=== PATIENT | male | born 1955 | race Caucasian/White ===

== ENCOUNTER 2020-09-05 07:04 | Inpatient (IN) | payer OTHER ==
[~2020-09-05] VITALS: Ht 182.9 cm; Wt 64.9 kg
[2020-09-05 07:16] VITALS: BP 176/92
[2020-09-05] MEDS ORDERED: ASA81BEC PO (07:22)
[2020-09-05] MEDS ORDERED: NEXIUM40 MG PO (07:22)
[2020-09-05 07:46] LABS: HEMATOCRIT 43.7 % (42.0-52.0); HEMOGLOBIN 15.1 gm/dL (14.0-18.0); MCH 35.9 pg (26.0-34.0); MCHC 34.6 g/dL (28.0-37.0); MCV 103.7 fL (80.0-100.0); MPV 7.8 fl. (7.2-11.1); NUCLEATED RBCS 0 /100WBC; PLATELET COUNT* 275 thou/uL (150-400); RBC 4.21 mil/uL (4.50-6.00); RDW-CV 14.2 % (10.5-14.5); WBC 13.8 thou/uL (4.0-11.0)
[2020-09-05 07:54] LABS: CALCIUM 8.9 mg/dL (8.5-10.1); CREATININE 0.7 mg/dL (0.6-1.3)
[2020-09-05 07:59] LABS: ALBUMIN 3.4 g/dL (3.4-5.0); TOTAL BILIRUBIN 1.4 mg/dL (<0.1-1.0); TOTAL PROTEIN 7.4 g/dL (6.4-8.2)
[2020-09-05 08:40] LABS: ABSOLUTE LYMPHOCYTES 0.6 thou/uL (0.8-5.3); ABSOLUTE MONOCYTES 0.6 thou/uL (0.0-1.2); ABSOLUTE NEUTROPHILS 12.7 thou/uL (1.6-8.1); METAMYELOCYTES 1 %
[2020-09-05 08:41] LABS: PLATELET ESTIMATE ADEQUATE; TOXIC GRANULATION Occasional
[2020-09-05 11:25] VITALS: BP 172/96
[2020-09-05 11:30] VITALS: BP 177/97
--- NOTE | 2020-09-05 15:34 | EKG ---
[place] [address] ELECTROCARDIOGRAM REPORT Name: CAT REAVES Room: [address] ADM IN ..#: [id number] Admission: 09/05/20 Attend Phys: Yumiko Pagan MD Discharge: Date of : 53 Date of Service: 09/05/20 0732 Report #: [id number] THIS REPORT FOR: //name// [facility] ED Test Date: 2020-09-05 Test Time: 07:32:37 Pat Name: CAT REAVES Department: Room: [facility] Gender: M Ski Lift Operator: CD : 1955 Requested By: Juan Daniel Art Order Number: [id number] MD: Rafa Bryan Measurements Intervals [place] Rate: 65 P: -76 [place]: 106 QRS: 55 QRSD: 96 T: 61 QT: 468 QTc: 487 Interpretive Statements Ectopic atrial rhythm Short [place] interval RSR' in V1 or V2, right VCD Borderline prolonged QT interval No previous ECG available for comparison Electronically Signed On 09-05-2020 15:33:46 [employer]ES [employer] by Rafa Bryan [email or web address] <ELECTRONICALLY SIGNED> By: Rafa Bryan MD, [facility] 09/05/20 1533 0732 0732 Rafa Bryan MD, [facility] /EPI
[2020-09-05 20:30] VITALS: BP 121/85
[2020-09-06 00:51] VITALS: BP 144/84
[2020-09-06 04:00] VITALS: BP 137/82
[2020-09-06 04:29] LABS: ABSOLUTE LYMPHOCYTES 0.6 thou/uL (0.8-5.3); ABSOLUTE MONOCYTES 0.8 thou/uL (0.0-1.2); BASOPHILS 0.3 %; EOSINOPHILS 0.1 %; HEMATOCRIT 40.9 % (42.0-52.0); LYMPHOCYTES 4.6 %; MCH 36.1 pg (26.0-34.0); MCHC 34.2 g/dL (28.0-37.0); MCV 105.4 fL (80.0-100.0); MONOCYTES 6.1 %; MPV 8.3 fl. (7.2-11.1); NUCLEATED RBCS 0 /100WBC; PLATELET COUNT* 220 thou/uL (150-400); POLYS 88.9 %; RBC 3.88 mil/uL (4.50-6.00); RDW-CV 14.4 % (10.5-14.5); WBC 13.4 thou/uL (4.0-11.0)
[2020-09-06 05:01] LABS: ALBUMIN 2.4 g/dL (3.4-5.0); CALCIUM 8.3 mg/dL (8.5-10.1); CREATININE 0.6 mg/dL (0.6-1.3); POTASSIUM 3.7 mmol/L (3.5-5.1); TOTAL BILIRUBIN 1.2 mg/dL (<0.1-1.0); TOTAL PROTEIN 5.7 g/dL (6.4-8.2)
[2020-09-06 08:00] VITALS: BP 147/89
[2020-09-06 16:00] VITALS: BP 161/90
[2020-09-06 19:50] VITALS: BP 144/86
[2020-09-07] VITALS (7 sets, daily range): BP systolic 137–181; BP diastolic 82–99
[2020-09-07 04:40] LABS: HEMATOCRIT 34.6 % (42.0-52.0); MCH 36.5 pg (26.0-34.0); MCHC 34.7 g/dL (28.0-37.0); MCV 105.2 fL (80.0-100.0); MPV 8.1 fl. (7.2-11.1); RBC 3.29 mil/uL (4.50-6.00); RDW-CV 14.3 % (10.5-14.5); WBC 12.1 thou/uL (4.0-11.0)
[2020-09-07 05:11] LABS: CREATININE 0.5 mg/dL (0.6-1.3); TOTAL PROTEIN 5.4 g/dL (6.4-8.2)
[2020-09-07 05:13] LABS: POTASSIUM 2.8 mmol/L (3.5-5.1)
[2020-09-08 04:20] VITALS: BP 145/88
[2020-09-08 04:37] LABS: HEMATOCRIT 33.2 % (42.0-52.0); HEMOGLOBIN 11.2 gm/dL (14.0-18.0); MCH 35.3 pg (26.0-34.0); MCHC 33.8 g/dL (28.0-37.0); MCV 104.2 fL (80.0-100.0); MPV 8.3 fl. (7.2-11.1); RBC 3.18 mil/uL (4.50-6.00); WBC 11.4 thou/uL (4.0-11.0)
[2020-09-08 04:50] LABS: CALCIUM 7.8 mg/dL (8.5-10.1); CREATININE 0.5 mg/dL (0.6-1.3); POTASSIUM 3.1 mmol/L (3.5-5.1)
[2020-09-08 08:00] VITALS: BP 178/102
[2020-09-08] MEDS ORDERED: VITAMIN B-1100 M1 PO (09:56)
[2020-09-08] MEDS ORDERED: PRENATAL PO (09:56)
[2020-09-08] MEDS ORDERED: ZESTRIL5 MG PO (10:32)
[2020-09-08] MEDS ORDERED: NICOTINE TRANSD21 M1 TRANSDERM (10:34)
[2020-09-08 11:52] VITALS: BP 124/77
[2020-09-08 13:27] VITALS: BP 124/77
[2020-09-08 14:39] VITALS: BP 124/77
== END 2020-09-08 14:50 | disposition home or self-care (01) | DRG 438 ==
LOC: M.ERS 07:04 → M.2W 08:59 → M.TBA-ER 08:59 → M.2W 11:33
PROVIDERS: Emergency Medicine Emergency Medical Services; Internal Medicine; ADMIT Family Medicine; ATTEND Family Medicine
DX: K85.90 Acute pancreatitis without necrosis or infection, unspecified (principal); E43 Unspecified severe protein-calorie malnutrition; E87.1 Hypo-osmolality and hyponatremia; Z68.1 Body mass index [BMI] 19.9 or less, adult; K21.9 Gastro-esophageal reflux disease without esophagitis; F10.20 Alcohol dependence, uncomplicated; Y90.9 Presence of alcohol in blood, level not specified; E87.6 Hypokalemia; F17.200 Nicotine dependence, unspecified, uncomplicated; I10 Essential (primary) hypertension; Z20.822 Contact with and (suspected) exposure to COVID-19; Z79.82 Long term (current) use of aspirin; Z79.899 Other long term (current) drug therapy